=== PATIENT | male | born 1990 | race Caucasian/White ===

== ENCOUNTER 2021-11-10 15:24 | Emergency (ER) | payer OTHER, SELFPAY ==
[2021-11-10 16:36] VITALS: BP 119/77; PULSE 98; RESP 14; TEMP 37.1; O2SAT 99; BMI 25.8
--- NOTE | 2021-11-10 16:48 | ED_ITS ---
HPI - General Adult General: Chief complaint: General Medical Stated complaint: sharp left abdominal pain Time Seen by Provider: 11/10/21 16:45 History of Present Illness: 31-year-old presents with left flank pain. Patient reports that started earlier today. He reports he was concerned it might be a kidney stone. He reports that the pain is constant and mild. Gets worse with movement. He denies any dysuria, hematuria, fever, chills, nausea or vomiting. Patient recalls no injury. He does work at a [employer] and does a lot of lifting and physical activity. Associated symptoms: Deny chest pain, dyspnea, headache(s), nausea, rash, palpit ations or vomiting Review of Systems Const: Denies: fever(s) or chills Card: Denies: chest pain or palpitations Resp: Denies: dyspnea or productive cough GI: Denies: abdominal pain, nausea or vomiting : Reports: flank pain; Denies: difficulty urinating, dysuria or urinary frequency Musc: Reports: back pain; Denies: neck pain, extremity pain or extremity swelling Skin/Breast: Denies: rash Neuro: Denies: headache(s) or numbness in extremities Psych: Denies: anxiety or depression PFSH ED PFSH: Social History Smoking and tobacco status: never smoked Alcohol intake: never Physical Exam Const: COMMON NORMALS: no acute distress, average body habitus and patient oriented x3 HENMT: COMMON NORMALS: normocephalic and atraumatic HEAD & SCALP: normocephalic and atraumatic Chest: COMMONS NORMALS: normal inspection of the chest and normal palpation of entire chest wall Resp: COMMON NORMALS: normal respiratory effort, No retractions, No use of accessory muscles and clear to auscultation bilaterally AUSCULTATION: clear to auscultation bilaterally Cardio: COMMON NORMALS: regular rate and regular rhythm RATE: regular rate RHYTHM: regular rhythm GI: COMMON NORMALS: Normal to inspection, nondistended, normoactive bowel sounds present and Soft to palpation PALPATION: Yes Soft to palpation : BLADDER/KIDNEY EXAM: Yes CVA tenderness on the left Back/Pelvis: GENERAL BACK: Yes CVA tenderness Extremity: COMMON NORMALS: normal to inspection, full ROM and capillary refill normal Neuro: COMMON NORMALS: patient oriented x3, CN's II-XII intact bilaterally, moves all extremities and no focal motor deficits Course Vital Signs: Vital signs: Vital Signs Temperature 98.7 F 11/10/21 16:36 Pulse Rate 98 11/10/21 16:36 Respiratory Rate 14 11/10/21 16:36 Blood Pressure 119/77 11/10/21 16:36 Pulse Oximetry 99 11/10/21 16:36 MDM - General Adult Medical Decision Making Patient's symptoms are completely rib producible with movement and resistance. Patient's with a negative urinalysis for any blood. Is very unlikely that is a kidney stone. Patient stable and discharged home. I discussed with him [id number] medications such as topical lidocaine with menthol, diclofenac. He should follow-up with a primary care provider if symptoms or not improving over the next week. Lab Data Laboratory Results Urine Color Yellow (Yellow) 11/10/21 18:10 Urine Appearance Clear (CLEAR) 11/10/21 18:10 Urine pH 6.5 (5-7) 11/10/21 18:10 Ur Specific [place] 1.010 (1.005-1.030) 11/10/21 18:10 Urine Protein Neg (Negative) 11/10/21 18:10 Urine Glucose (UA) 4+ (Normal) H 11/10/21 18:10 Urine Ketones 1+ (Negative) H 11/10/21 18:10 Urine Blood Neg (Negative) 11/10/21 18:10 Urine Nitrate Negative (Negative) 11/10/21 18:10 Urine Bilirubin Neg (Negative) 11/10/21 18:10 Urine Urobilinogen Norm mg/dL (Negative) 11/10/21 18:10 Ur Leukocyte Esterase Negative (Negative) 11/10/21 18:10 Discharge Plan Discharge Patient Disposition: Home Clinical Impression: Strain of muscle and tendon of back wall of thorax, initial encounter Condition: Stable Prescriptions: No Action Novolin R Flexpen 100 unit/mL (3 mL) insulin pen 15 unit SUBCUT TID 0RF methylprednisolone [Medrol (Eric)] 4 mg tablets,dose pack See Rx Instructions PO PER PKG DIR Qty: 21 0RF Rx Instructions: PO PER PKG DIR cephalexin 500 mg capsule 500 mg PO Q12H 10 Days Qty: 20 0RF Discharge Orders: Discharge ED (Routine); Ordered 11/10/21 Ordered By: Mikel De Discharge Diet: Usual diet Discharge Activity: Increase activity as tolerated Patient Instructions: Thoracic Back Strain (ED), Core Strengthening Exercises (ED), Opioid Safety Activity Restrictions/Additional Instructions: 4% topical lidocaine with menthol, cream gel or patch use as directed on package Voltaren/diclofenac cream use as directed on package Tylenol or ibuprofen as needed for pain Warm moist heat to affected area 3-4 times daily Follow-up with your primary care provider if symptoms or not improved over the next week or if they continue to worsen Coding Level of Care Code ED [employer] Specialist Supervisor for Chg Fwd Exam Comprehensive
[2021-11-10] MEDS: ketorolac 30 mg/mL INJ 15 MG IM (17:59)
[2021-11-10 18:23] LABS: Add Urine Microscopic? NO; Charge for UA Resulting for Rev
[2021-11-10 18:26] LABS: Urine Appearance Clear (CLEAR); Urine Color Yellow (Yellow)
[2021-11-10 18:27] LABS: Bilirubin Urine Neg (Negative); Blood Urine Neg (Negative); Glucose Urine UA 4+ (Normal); Ketones Urine 1+ (Negative); Leukocyte Esterase Urine Negative (Negative); Nitrate Urine Negative (Negative); Protein Urine Neg (Negative); Urobilinogen Urine Norm (Negative); pH Urine 6.5 (5-7)
== END 2021-11-10 18:54 | disposition home or self-care (01) ==
PROVIDERS: Emergency Provider Student in an Organized Health Care Education/Training Program
DX: S29.012A Strain of muscle and tendon of back wall of thorax, initial encounter (principal); X58.XXXA Exposure to other specified factors, initial encounter
CPT/HCPCS: 81003; 96372; 99284; J1885

== ENCOUNTER → 2023-05-23 12:04 | Outpatient (BNVA) | payer OTHER, SELFPAY | PROVIDERS: PCP Nurse Practitioner Family; Referring Provider Nurse Practitioner Family; Visit Provider Internal Medicine | DX: E11.9 Type 2 diabetes mellitus without complications (principal) | CPT/HCPCS: 36415; 80053; 80061; 82044; 83036 ==

== ENCOUNTER → 2023-09-05 11:15 | Outpatient (BNVA) | payer OTHER, SELFPAY | PROVIDERS: PCP Nurse Practitioner Family; Visit Provider Podiatrist Foot & Ankle Surgery | DX: E11.69 Type 2 diabetes mellitus with other specified complication; B35.3 Tinea pedis; R60.9 Edema, unspecified; Z79.4 Long term (current) use of insulin; L03.90 Cellulitis, unspecified; L97.519 Non-pressure chronic ulcer of other part of right foot with unspecified severity | CPT/HCPCS: 36415; 73630; 80053; 85025; 85651; 86140 ==

== ENCOUNTER → 2023-09-16 13:32 | Outpatient (BNVA) | payer OTHER, SELFPAY | PROVIDERS: PCP Nurse Practitioner Family; Visit Provider Internal Medicine | DX: E78.2 Mixed hyperlipidemia (principal) | CPT/HCPCS: 36415; 80053; 80061; 82044; 83036 ==

== ENCOUNTER → 2023-10-17 08:21 | Outpatient (BNVA) | payer OTHER, SELFPAY | PROVIDERS: PCP Nurse Practitioner Family; Visit Provider Podiatrist Foot & Ankle Surgery | DX: L03.90 Cellulitis, unspecified; R60.9 Edema, unspecified; B35.3 Tinea pedis; E10.69 Type 1 diabetes mellitus with other specified complication | CPT/HCPCS: 73630 ==

== ENCOUNTER 2023-11-18 07:54 | Outpatient (CLI) | payer OTHER, SELFPAY ==
--- NOTE | 2023-11-18 08:00 | MR_ITS ---
WS: [id number] EXAMINATION: MR foot RT wo con* [id number] ORDER DATE: 11/18/2023 8:00 AM COMPARISON: None. HISTORY: Cellulitis CONTRAST: None. TECHNIQUE: Sagittal T1, sagittal STIR, coronal PD, coronal T2, axial T1, axial T2, and axial PD imagi ng with fat saturation technique. FINDINGS:Pes planus. Soft tissue edema with skin thickening involving the forefoot. No evidence of dr ainable abscess or fluid collection. Findings likely due to cellulitis. Normal bone marrow signal in the first through fifth metatarsals. Normal cuneiforms. Normal navicular. Normal cuboid. Partially vi sualized talar neck appears normal. Hindfoot is not included on this study. Small amount of edema jd ng the plantar forefoot. No visualized fractures. No evidence of osteomyelitis. MR/MR foot RT wo con* [id number] IMPRESSION: 1. Soft tissue edema involving the dorsal forefoot subcutaneous soft tissues w ith slight edema involving the plantar forefoot compatible with cellulitis with skin thickening. Edema extends into the intertarsal soft tissues. No evidence of drainable abscess or fluid collection. 2. No evidence of osteomyelitis. 3. Normal bone marrow signal in the metatarsals and tarsal bones. 4. No other suspicious findings.
== END 2023-11-18 07:55 | disposition home or self-care (01) ==
LOC: RAD 07:54
PROVIDERS: PCP Nurse Practitioner Family; Visit Provider Podiatrist Foot & Ankle Surgery
DX: L03.90 Cellulitis, unspecified (principal)
CPT/HCPCS: 73718

== ENCOUNTER 2024-04-19 12:00 | Emergency (ER) | payer OTHER, SELFPAY ==
[2024-04-19 12:57] VITALS: BP 145/83; PULSE 100; RESP 16; TEMP 36.8; O2SAT 98; BMI 27.3
[2024-04-19 13:47] LABS: Basophils % 0.3 %; Eosinophils # 0.1 10^3/uL (0.0-0.8); Eosinophils % 1.9 %; Hematocrit 42.5 % (37-53); Lymphocytes # 1.6 10^3/uL (0.8-4.8); Lymphocytes % 22.6 %; Mean Corpuscular HGB Conc 32.5 g/dL (30-55); Mean Corpuscular Hemoglobin 28.3 pg (27-33); Mean Corpuscular Volume 87.1 fl (82-101); Mean Platelet Volume 11.3 fL (7.4-10.4); Monocytes # 0.5 10^3/uL (0.2-0.9); Monocytes % 6.7 %; Neutrophils # 4.92 10^3/uL (1.8-7.7); Neutrophils % 68.2 %; Nucleated Red Blood Cells % 0 %; Platelet Count 302 10^3/cmm (157-399); Red Blood Count 4.88 10^6/uL (3.85-5.65); Red Cell Distribution Width 12.5 % (12.1-15.1); White Blood Count 7.21 10^3/uL (3.29-11.43)
[2024-04-19 14:05] LABS: Alanine Aminotransferase 13 U/L (0-41); Albumin Level 4.3 g/dL (3.5-5.2); Alkaline Phosphatase 86 U/L (40-130); Anion Gap 17.5 (5-19); Aspartate Amino Transferase 16 U/L (0-40); Blood Urea Nitrogen 28 mg/dL (6-20); Carbon Dioxide 24 mmol/L (22-29); Chloride 102 mmol/L (98-107); Globulin 3.3 g/dL (1.3-4.6); Glomerular Filtration Rate 85.5 mL/min (90-130); Glucose 209 mg/dL (65-115); Osmolality Calculated 300 mOsm/kg (285-295); Potassium 4.5 mmol/L (3.5-5.1); Sodium 139 mmol/L (136-145); Total Bilirubin 0.2 mg/dL (0.15-1.2); Total Protein 7.6 g/dL (6.6-8.7)
--- NOTE | 2024-04-19 16:02 | W.ED.EAR ---
Documented by User: ISAIAH Shankar 04/19/24 16:30 HPI - Ear Problem General: Chief complaint: Ear Stated complaint: sent from urgent care/ ear problem Time Seen by Provider: 04/19/24 15:41 Source: patient and family Mode of arrival: ambulatory Limitations: no limitations History of Present Illness: Patient is a 34-year-old male who presents to ED today after he was sent by Dr. Gonzalez for concerns of a right sided mastoiditis. Patient reportedly had a right tympanic membrane perforation approximately a month ago. Since then he has developed pain along his TMJ and jaw. Feels like his jaw feels numb. Previous provider noted that right mastoid was tender to palpation with overlying erythema. Concern was for mastoiditis. Patient states he is having difficulty opening his jaw. He has not noticed any drainage from the ear. No fevers. Vital signs are stable upon arrival. MD Complaint: other (Previous provider concern for mastoiditis) Location: right ear Severity: moderate Exacerbating factors: chewing Discharge from ear: no Associated symptoms: Reports ear or mastoid pain; Denies fever(s), headache(s), neck pain or tinnitus Treatment prior to arrival: none Related Data Previous Rx's Medication Instructions Recorded glucagon 1 mg solution for 1 mg SUBCUT Q20M PRN severe 10/01/23 injection (Glucagon Emergency Kit) hypoglycemia #1 ea atorvastatin 40 mg tablet 40 mg PO DAILY #30 tabs 03/16/24 clotrimazole-betamethasone 1 1 applic topical BID #15 grams 04/13/24 %-0.05 % topical cream insulin aspart U-100 100 unit/mL See Rx Instructions .Route 04/15/24 (3 mL) subcutaneous pen .COMPLEX #90 mL insulin glargine 100 unit/mL (3 See Rx Instructions .Route 04/15/24 mL) subcutaneous pen (Basaglar .COMPLEX #45 mL KwikPen U-100 Insulin) amoxicillin 500 mg-potassium 1 tab PO BID #20 tabs 04/19/24 clavulanate 125 mg tablet (Augmentin) Allergies Allergy/AdvReac Type Severity Reaction Status Date / Time insulin glargine AdvReac B.S. Verified 04/19/24 13:02 [From Lantus U-100 Insulin] remains high Review of Systems Const: Denies: fever(s), chills, body aches, fatigue or malaise ENMT: Reports: ear or mastoid pain; Denies: hoarseness, mouth pain, swelling of lips/tongue, oral sores, dental pain, change in hearing, tinnitus, disequilibrium, nasal discharge, nasal congestion or sinus pain Card: Denies: chest pain Resp: Denies: dyspnea GI: Denies: nausea or vomiting Musc: Denies: neck pain Neuro: Denies: headache(s) PFSH ED PFSH: Medical History Diabetes type 1, uncontrolled Social History Smoking and tobacco/nicotine status: never used tobacco/nicotine Alcohol intake: never Substance/Drug Use: never Physical Exam Const: COMMON NORMALS: no acute distress, average body habitus, patient oriented x3, no limitations, healthy appearing, alert and well nourished GENERAL APPEARANCE: cooperative ORIENTATION/CONSCIOUSNESS: Yes awake, Yes oriented to person, Yes oriented to place and Yes oriented to time HENMT: COMMON NORMALS: normocephalic, atraumatic, hearing grossly normal bilaterally and external ears normal HEAD & SCALP: normal to inspection, normocephalic and atraumatic FACE & SINUS: normal facial exam and other (pain along R TMJ/jaw with opening; feels like jaw is numb) EXTERNAL EAR: Yes external ears normal, Yes mastoid abnormal (mild tenderness; no edema/erythema noted) and Yes no periauricular adenopathy EXTERNAL AUDITORY CANAL: Abnormal EAC present EAC laterality: right Details: cerumen impaction MOUTH: Normal oral and palatal mucosa present and lip normal TEETH & GINGIVA: Yes caries and Yes poor dentition THROAT: posterior oropharynx normal and tonsils normal Eye: GENERAL EYE: appearance normal, both eyes and all related structures Neck/C-Spine: COMMON NORMALS: full ROM, no lymphadenopathy, no meningeal signs, no JVD and No carotid bruits GENERAL: Yes normal visual inspection Cardio: COMMON NORMALS: no JVD Extremity: GENERAL: Yes normal exam except as noted Neuro: LOI COMA SCALE: document GCS findings [place] coma scale eye opening: Spontaneous Loi coma scale verbal response: Orientated [place] coma scale motor response: Obey commands [place] coma scale total score: 15 COMMON NORMALS: patient oriented x3 and CN's II-XII intact bilaterally SENSORIUM/ORIENTATION: Yes alert, Yes oriented to person, Yes oriented to place and Yes oriented to time MENINGEAL SIGNS: Yes no meningeal signs Skin: COMMON NORMALS: no rashes or lesions noted GENERAL SKIN EXAM: no rashes or lesions noted Course Vital Signs: Vital signs: Vital Signs Temperature 98.3 F 04/19/24 12:57 Pulse Rate 100 04/19/24 12:57 Respiratory Rate 16 04/19/24 12:57 Blood Pressure 145/83 04/19/24 12:57 Pulse Oximetry 98 04/19/24 12:57 Oxygen Delivery Me thod Room Air 04/19/24 12:57 MDM - Ear Lab Data 04/19/24 13:30 04/19/24 13:30 Radiology Impressions Temporal Bone CT 04/19/24 16:21 IMPRESSION: Opacification of the right mastoid air cells and right middle ear compatible with otomastoiditis. Recommend clinical correlation and follow-up imaging as clinically warranted Laboratory Results WBC 7.21 10^3/uL (3.29-11.43) 04/19/24 13:30 RBC 4.88 10^6/uL (3.85-5.65) 04/19/24 13:30 Hgb 13.80 g/dL (11.27-16.99) 04/19/24 13:30 Hct 42.5 % (37-53) 04/19/24 13:30 MCV 87.1 fl (82-101) 04/19/24 13:30 MCH 28.3 pg (27-33) 04/19/24 13:30 MCHC 32.5 g/dL (30-55) 04/19/24 13:30 RDW 12.5 % (12.1-15.1) 04/19/24 13:30 Plt Count 302 10^3/cmm (157-399) 04/19/24 13:30 MPV 11.3 fL (7.4-10.4) H 04/19/24 13:30 Neut % (Auto) 68.2 % 04/19/24 13:30 Lymph % (Auto) 22.6 % 04/19/24 13:30 [place] % (Auto) 6.7 % 04/19/24 13:30 Eos % (Auto) 1.9 % 04/19/24 13:30 Baso % (Auto) 0.3 % 04/19/24 13:30 Neut # (Auto) 4.92 10^3/uL (1.8-7.7) 04/19/24 13:30 Lymph # (Auto) 1.6 10^3/uL (0.8-4.8) 04/19/24 13:30 [place] # (Auto) 0.5 10^3/uL (0.2-0.9) 04/19/24 13:30 Eos # (Auto) 0.1 10^3/uL (0.0-0.8) 04/19/24 13:30 Baso # (Auto) 0.0 10^3/uL (0.0-0.1) 04/19/24 13:30 Nucleated RBC % (auto) 0 % 04/19/24 13:30 Nucleated RBCs # 0.0 /100WBC 04/19/24 13:30 Sodium 139 mmol/L (136-145) 04/19/24 13:30 Potassium 4.5 mmol/L (3.5-5.1) 04/19/24 13:30 Chloride 102 mmol/L (98-107) 04/19/24 13:30 Carbon Dioxide 24 mmol/L (22-29) 04/19/24 13:30 Anion Gap 17.5 (5-19) 04/19/24 13:30 BUN 28 mg/dL (6-20) H 04/19/24 13:30 Creatinine 1.0 mg/dL (0.7-1.2) 04/19/24 13:30 GFR Calculation 85.5 mL/min (90-130) L 04/19/24 13:30 Glucose 209 mg/dL (65-115) H 04/19/24 13:30 Calculated Osmolality 300 mOsm/kg (285-295) H 04/19/24 13:30 Calcium 9.0 mg/dL (8.5-10.5) 04/19/24 13:30 Total Bilirubin 0.2 mg/dL (0.15-1.2) 04/19/24 13:30 AST 16 U/L (0-40) 04/19/24 13:30 ALT 13 U/L (0-41) 04/19/24 13:30 Alkaline Phosphatase 86 U/L (40-130) 04/19/24 13:30 C-Reactive Protein 9.0 mg/L (0.0-4.9) H 04/19/24 13:30 Total Protein 7.6 g/dL (6.6-8.7) 04/19/24 13:30 Albumin 4.3 g/dL (3.5-5.2) 04/19/24 13:30 Globulin 3.3 g/dL (1.3-4.6) 04/19/24 13:30 Discharge Plan Discharge Patient Disposition: Home Clinical Impression: Otitis media Condition: Stable Prescriptions: New amoxicillin-pot clavulanate [Augmentin] 500-125 mg tablet 1 tab PO BID Qty: 20 0RF No Action Glucagon Emergency Kit (human) 1 mg recon soln 1 mg SUBCUT Q20M PRN (Reason: severe hypoglycemia) Qty: 1 0RF Rx Instructions: until target blood sugar attained atorvastatin 40 mg tablet 40 mg PO DAILY Qty: 30 3RF Rx Instructions: Take in the evenings before bed clotrimazole-betamethasone 1-0.05 % cream 1 applic topical BID Qty: 15 2RF insulin aspart U-100 100 unit/mL (3 mL) insulin pen See Rx Instructions .ROUTE .COMPLEX Qty: 90 1RF Dose Instruction: inject 34 units SUBCUTANEOUSLY THREE TIMES DAILY FOR 90 DAYS Rx Instructions: inject 34 units SUBCUTANEOUSLY THREE TIMES DAILY FOR 90 DAYS insulin glargine [Basaglar KwikPen U-100 Insulin] 100 unit/mL (3 mL) insulin pen See Rx Instructions .ROUTE .COMPLEX Qty: 45 1RF Dose Instruction: inject 50 units SUBCUTANEOUSLY EVERY MORNING FOR THREE MONTHS Rx Instructions: inject 50 units SUBCUTANEOUSLY EVERY MORNING FOR THREE MONTHS Discharge Orders: Discharge ED (Routine); Ordered 04/19/24 Ordered By: Andreina Gonzales Referrals: Kami Ann NP [Primary Care Provider] - Swapnil Leiva MD [Physician] - 4-7 days Discharge Diet: Advance as tolerated Discharge Activity: Resume usual activity Patient Instructions: Otitis Media - Adult Coding Level of Care Code ED Ems Helicopter Pilot for Chg Fwd Documented by User: Andreina Gonzales MD 04/19/24 17:37 HPI - Ear Problem General: Chief complaint: Ear Stated complaint: sent from urgent care/ ear problem Time Seen by Provider: 04/19/24 15:41 Related Data Previous Rx's Medication Instructions Recorded glucagon 1 mg solution for 1 mg SUBCUT Q20M PRN severe 10/01/23 injection (Glucagon Emergency Kit) hypoglycemia #1 ea atorvastatin 40 mg tablet 40 mg PO DAILY #30 tabs 03/16/24 clotrimazole-betamethasone 1 1 applic topical BID #15 grams 04/13/24 %-0.05 % topical cream insulin aspart U-100 100 unit/mL See Rx Instructions .Route 04/15/24 (3 mL) subcutaneous pen .COMPLEX #90 mL insulin glargine 100 unit/mL (3 See Rx Instructions .Route 04/15/24 mL) subcutaneous pen (Basaglar .COMPLEX #45 mL KwikPen U-100 Insulin) amoxicillin 500 mg-potassium 1 tab PO BID #20 tabs 04/19/24 clavulanate 125 mg tablet (Augmentin) Allergies Allergy/AdvReac Type Severity Reaction Status Date / Time insulin glargine AdvReac B.S. Verified 04/19/24 13:02 [From Lantus U-100 Insulin] remains high [facility] ED PFSH: Medical History Diabetes type 1, uncontrolled Social History Smoking and tobacco/nicotine status: never used tobacco/nicotine Alcohol intake: never Substance/Drug Use: never Physical Exam Neuro: LOI COMA SCALE: document GCS findings [place] coma scale total score: 15 Course Vital Signs: Vital signs: Vital Signs Temperature 98.3 F 04/19/24 12:57 Pulse Rate 100 04/19/24 12:57 Respiratory Rate 16 04/19/24 12:57 Blood Pressure 145/83 04/19/24 12:57 Pulse Oximetry 98 04/19/24 12:57 Oxygen Delivery Me thod Room Air 04/19/24 12:57 MDM - Ear Medical Decision Making Patient presents with right ear pain I examined him as well he has no tenderness over his mastoid on my exam CT showed a otomastoiditis is likely an inner ear infection. I spoke to Dr. Bentley over the CT with him as well will start on Augmentin we will get follow-up with Dr. Leal informed patient if he has any worsening pain or fevers he is to return he understands agrees to plan. Medical Records I reviewed the patient's medical records. Lab Data I reviewed the patient's lab results. 04/19/24 13:30 04/19/24 13:30 Radiology Impressions Temporal Bone CT 04/19/24 16:21 IMPRESSION: Opacification of the right mastoid air cells and right middle ear compatible with otomastoiditis. Recommend clinical correlation and follow-up imaging as clinically warranted Laboratory Results WBC 7.21 10^3/uL (3.29-11.43) 04/19/24 13:30 RBC 4.88 10^6/uL (3.85-5.65) 04/19/24 13:30 Hgb 13.80 g/dL (11.27-16.99) 04/19/24 13:30 Hct 42.5 % (37-53) 04/19/24 13:30 MCV 87.1 fl (82-101) 04/19/24 13:30 MCH 28.3 pg (27-33) 04/19/24 13:30 MCHC 32.5 g/dL (30-55) 04/19/24 13:30 RDW 12.5 % (12.1-15.1) 04/19/24 13:30 Plt Count 302 10^3/cmm (157-399) 04/19/24 13:30 MPV 11.3 fL (7.4-10.4) H 04/19/24 13:30 Neut % (Auto) 68.2 % 04/19/24 13:30 Lymph % (Auto) 22.6 % 04/19/24 13:30 [place] % (Auto) 6.7 % 04/19/24 13:30 Eos % (Auto) 1.9 % 04/19/24 13:30 Baso % (Auto) 0.3 % 04/19/24 13:30 Neut # (Auto) 4.92 10^3/uL (1.8-7.7) 04/19/24 13:30 Lymph # (Auto) 1.6 10^3/uL (0.8-4.8) 04/19/24 13:30 [place] # (Auto) 0.5 10^3/uL (0.2-0.9) 04/19/24 13:30 Eos # (Auto) 0.1 10^3/uL (0.0-0.8) 04/19/24 13:30 Baso # (Auto) 0.0 10^3/uL (0.0-0.1) 04/19/24 13:30 Nucleated RBC % (auto) 0 % 04/19/24 13:30 Nucleated RBCs # 0.0 /100WBC 04/19/24 13:30 Sodium 139 mmol/L (136-145) 04/19/24 13:30 Potassium 4.5 mmol/L (3.5-5.1) 04/19/24 13:30 Chloride 102 mmol/L (98-107) 04/19/24 13:30 Carbon Dioxide 24 mmol/L (22-29) 04/19/24 13:30 Anion Gap 17.5 (5-19) 04/19/24 13:30 BUN 28 mg/dL (6-20) H 04/19/24 13:30 Creatinine 1.0 mg/dL (0.7-1.2) 04/19/24 13:30 GFR Calculation 85.5 mL/min (90-130) L 04/19/24 13:30 Glucose 209 mg/dL (65-115) H 04/19/24 13:30 Calculated Osmolality 300 mOsm/kg (285-295) H 04/19/24 13:30 Calcium 9.0 mg/dL (8.5-10.5) 04/19/24 13:30 Total Bilirubin 0.2 mg/dL (0.15-1.2) 04/19/24 13:30 AST 16 U/L (0-40) 04/19/24 13:30 ALT 13 U/L (0-41) 04/19/24 13:30 Alkaline Phosphatase 86 U/L (40-130) 04/19/24 13:30 C-Reactive Protein 9.0 mg/L (0.0-4.9) H 04/19/24 13:30 Total Protein 7.6 g/dL (6.6-8.7) 04/19/24 13:30 Albumin 4.3 g/dL (3.5-5.2) 04/19/24 13:30 Globulin 3.3 g/dL (1.3-4.6) 04/19/24 13:30 All radiology interpretation(s) finalized by discharge Discharge Plan Discharge Patient Disposition: Home Clinical Impression: Otitis media Condition: Stable Prescriptions: New amoxicillin-pot clavulanate [Augmentin] 500-125 mg tablet 1 tab PO BID Qty: 20 0RF No Action Glucagon Emergency Kit (human) 1 mg recon soln 1 mg SUBCUT Q20M PRN (Reason: severe hypoglycemia) Qty: 1 0RF Rx Instructions: until target blood sugar attained atorvastatin 40 mg tablet 40 mg PO DAILY Qty: 30 3RF Rx Instructions: Take in the evenings before bed clotrimazole-betamethasone 1-0.05 % cream 1 applic topical BID Qty: 15 2RF insulin aspart U-100 100 unit/mL (3 mL) insulin pen See Rx Instructions .ROUTE .COMPLEX Qty: 90 1RF Dose Instruction: inject 34 units SUBCUTANEOUSLY THREE TIMES DAILY FOR 90 DAYS Rx Instructions: inject 34 units SUBCUTANEOUSLY THREE TIMES DAILY FOR 90 DAYS insulin glargine [Basaglar KwikPen U-100 Insulin] 100 unit/mL (3 mL) insulin pen See Rx Instructions .ROUTE .COMPLEX Qty: 45 1RF Dose Instruction: inject 50 units SUBCUTANEOUSLY EVERY MORNING FOR THREE MONTHS Rx Instructions: inject 50 units SUBCUTANEOUSLY EVERY MORNING FOR THREE MONTHS Discharge Orders: Discharge ED (Routine); Ordered 04/19/24 Ordered By: Andreina Gonzales Referrals: Kami Ann NP [Primary Care Provider] - Swapnil Leiva MD [Physician] - 4-7 days Discharge Diet: Advance as tolerated Discharge Activity: Resume usual activity Patient Instructions: Otitis Media - Adult Coding Level of Care Code ED Ems Helicopter Pilot for Verenice Matthews
--- NOTE | 2024-04-19 16:21 | CTR_ITS ---
PROCEDURE INFORMATION: Exam: CT Temporal Bones With Contrast. Exam date and time: 04/19/2024 5:36 PM Age: 34 years old Clinical indication: Other: Mastioditis RT; Additional info: Told R mastoiditis? TECHNIQUE: Imaging protocol: Computed tomography of the temporal bones with contrast. Radiation optimization: All CT scans at this facility use at least one of these dose optimization techniques: automated exposure control; mA and/or kV adjustment per patient size (includes targeted exams where dose is matched to clinical indication); or iterative reconstruction. Contrast material: OMNI 350; Contrast volume: 100 ml; Contrast route: INTRAVENOUS (IV); COMPARISON: No relevant prior studies available. RADIATION DOSE METRICS: Total DLP (mGy-cm): 549.18 FINDINGS: Right inner ear: Inner ear structures including the cochlea and semicircular canals are unremarkable. Right ossicles and middle ear: The middle ear ossicles are intact. There is complete opacification of the right middle ear. Right external auditory canal: Soft tissue thickening along the jara of the external auditory canal. Recommend correlation with direct visualization. Right facial nerve canal: Normal. Right jugular foramen: No jugular dehiscence. Right carotid canal: No aberrant carotid canal. Right mastoid air cells: Nearly complete opacification of the right mastoid air cells. Intact bony septations. Left inner ear: Inner ear structures including the cochlea and semicircular canals are unremarkable. Left ossicles and middle ear: The middle ear ossicles are intact. Left external auditory canal: Normal. Left facial nerve canal: Normal. Left jugular foramen: No jugular dehiscence. Left carotid canal: No aberrant carotid canal. Left mastoid air cells: Well aerated mastoid air cells with intact bony septations. Soft tissues: Visualized soft tissues are unremarkable. CT/CT temporal bones w con [id number] IMPRESSION: Opacification of the right mastoid air cells and right middle ear compatible with otomastoiditis. Recommend clinical correlation and follow-up imaging as clinically warranted
[2024-04-19 17:49] VITALS: BP 165/101; PULSE 78; O2SAT 98
--- NOTE | 2024-04-20 08:16 | DCPLANNER ---
Sent referral to Dr. Abbie pickard
== END 2024-04-19 17:50 | disposition home or self-care (01) ==
PROVIDERS: Emergency Provider Emergency Medicine; PCP Nurse Practitioner Family
DX: H66.91 Otitis media, unspecified, right ear (principal); E10.9 Type 1 diabetes mellitus without complications; Z79.4 Long term (current) use of insulin
CPT/HCPCS: 36415; 70481; 80053; 85025; 86140; 99284; Q9967

== ENCOUNTER 2024-05-19 09:22 | Outpatient (CLI) | payer OTHER, SELFPAY ==
--- NOTE | 2024-05-19 09:30 | CT_ITS ---
WS: [id number] CT TEMPORAL BONES TECHNIQUE: Noncontrast CT of the temporal bones with coronal and sagittal reformatted images. CLINICAL INFORMATION: OTORRHEA,R EAR COMPARISON: 04/19/2024 DLP: 345.[address] scans at [facility] use at least one of these dose optimization techniques: automated e xposure control; mA and/or kV adjustment per patient size (includes targeted exams where dose is matc hed to clinical indication); or iterative reconstruction. FINDINGS: RIGHT: Complete opacification of the RIGHT mastoid air cells and RIGHT middle ear. Opacification of mastoid air cells appears progressed. A few small areas of aeration within the RIGHT middle ear.Opacification of Prussak space. Tegmen tympani appears intact. Retraction of the tympanic membrane. Ossicles appea r intact. Otherwise normal inner ear structures. LEFT: Mastoid air cells are well aerated. Normal external auditory canal. Ossicles are normal in appearance . Middle ear is well aerated. Normal tegmen tympani. Semicircular canals and cochlea are normal in ap pearance. Prussak's space is normal. Normal inner ear structures. Normal vestibular aqueduct. Facial nerve recess is normal. CT/CT temporal bone wo con* [id number] IMPRESSION: 1. Complete opacification RIGHT mastoid air cells and RIGHT middle ear most co mpatible with otomastoiditis similar to previous. Mastoid air cell opacificatio n has slightly progressed today. A few small locules of aeration in the RIGHT m iddle ear which is still nearly completely opacified. 2. LEFT mastoid air cells and middle ear are well aerated. 3. Paranasal sinuses are well aerated. Mild mucosal thickening in the RIGHT ma xillary sinus. 4. Normal posterior nasopharynx.
== END 2024-05-19 09:23 | disposition home or self-care (01) ==
LOC: RAD 09:22
PROVIDERS: PCP Nurse Practitioner Family; Visit Provider Specialist
DX: H74.8X1 Other specified disorders of right middle ear and mastoid (principal); H92.11 Otorrhea, right ear
CPT/HCPCS: 70480

== ENCOUNTER 2025-03-02 07:51 | Day surgery (SDC) | payer OTHER, SELFPAY ==
[2025-03-02] VITALS (9 sets, daily range): BP systolic 103–135; BP diastolic 57–96; PULSE 72–79; RESP 14–18; TEMP 36.3–36.5; O2SAT 93–99; BMI 27.3
--- NOTE | 2025-03-02 09:16 | ANES.PREANE2 ---
Pre-Anesthetic Assessment Height/Weight: Height 1.73 m Weight 81.647 kg Temp Pulse Resp BP Pulse Ox O2 Del Method 97.5 F L 73 14 133/89 98 Room Air 03/02/25 08:47 03/02/25 08:47 03/02/25 08:47 03/02/25 08:47 03/02/25 08:47 03/02/25 08:47 Operation Date: 03/02/25 09:20 Proposed Procedures p RIGHT Long Finger Trigger Finger Release(Right) - Vahe Garcia MD Familial anesthetic complications: None Was Beta Chito taken within 24 hours: N/A Was Clonidine taken within 24 hours: N/A Last intake: Intake Last Liquid Date 03/01/25 Last Liquid Time 22:00 Last Solid Date 03/01/25 Last Solid Time 22:00 Social No alcohol and No tobacco Exam alert, oriented x 3, clear to auscultation bilaterally and regular rate & rhythm Airway Mallampati: Class III Dentition: full Metabolic Diabetes Mellitus Anesthetic Plan ASA status: 3 Anesthesia: MAC Risk of > 500 ml blood loss (7ml/kg in children): No Medications/Allergies Home Medications ?Medication ?Instructions ?Recorded ?Confirmed ?Last Taken ?Type glucagon 1 mg solution for 1 mg SUBCUT Q20M PRN severe 10/01/23 03/01/25 Unknown Rx injection (Glucagon Emergency Kit) hypoglycemia #1 ea blood-glucose sensor (FreeStyle #2 ea 11/16/24 01/27/25 Unknown Rx Idania 3 Plus Sensor device) blood-glucose,suction plate 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 Verified 03/01/25 11:10 Lantus U-100 Insulin) remains high [facility] Anesthesia Medical History Diabetes type 1, uncontrolled Social History Smoking and tobacco/nicotine status: never used tobacco/nicotine Alcohol intake: never Substance/Drug Use: never
[2025-03-02] MEDS: insulin regular-human 100 units/1 mL 10 UNIT IVP (09:22)
--- NOTE | 2025-03-02 09:32 | W.PM.OPSUD ---
Surgery/Procedure H&P Update DATE OF PROCEDURE: March 02, 2025 DATE H&P PERFORMED: 01/27/25 H&P UPDATE INFORMATION: I have reviewed H&P completed within last 30 days, I have examined patient prior to procedure and No changes to prior documentation PREOP DIAGNOSIS: Right middle finger trigger finger PLANNED PROCEDURE: Operation Date: 03/02/25 09:20 Proposed Procedures p RIGHT Long Finger Trigger Finger Release(Right) - Vahe Garcia MD
[2025-03-02] MEDS: ceFAZolin 2,000 mg SDV 2000 MG IVP (09:39)
[2025-03-02] MEDS: BUPivacaine 0.5% INJ 10 mL INJECTION (09:57)
--- NOTE | 2025-03-02 11:30 | ANE.PACU2 ---
Inpatient post-anesthesia follow up: Airway intact: Yes Vital signs: Temperature 97.4 F Pulse Rate 76 Respiratory Rate 17 Blood Pressure 135/96 Pulse Oximetry 99 Oxygen Delivery Me thod Room Air Oxygen Flow Rate 10 Fraction of Inspir ed Oxygen Hydration adequate: Yes Nausea and vomiting: No Pain level: 1 Mental status: Baseline
--- NOTE | 2025-03-04 08:20 | PM.OP ---
Operative Report Date of procedure: March 02, 2025 Surgeon: Vahe Garcia MD Procedure: Preoperative diagnosis: Trigger finger long finger of the right hand Postoperative diagnosis: Same Procedure: Right long finger trigger release Surgeon: Vahe Zaidi MD Anesthesia: General EBL: None Indications: Cesario is a 35-year-old white male presented to orthopedic clinics with pain and locking of his middle fingers right hand. This been going on for some time now. Conservative measures did not help with this. He had to manually straighten his finger most of the time if it flexed down too far. He has painful nodule palpable in the flexor tendon of the long finger at the A1 maddi. Therefore at this time offered a trigger finger release. All risk benefits treatment terms were discussed with him and he is agreeable to this at this time. Procedure: After obtaining consent patient taken the op room placed the op table supine position general anesthetic administered. Once K[place] was achieved patient is right arm was prepped and draped usual fashion. After surgical timeout hand and wrist were exsanguinated with the Esmarch and Esmarch was used for a tourniquet. Longitudinal incision made through the distal flexion crease of the palm at the level of the A1 maddi in line with the long finger. Sharp dissection taken down to subcutaneous tissue. Blunt sharp dissection was done by tenotomy scissors down to the tendon sheath. A1 maddi identified and divided in half with #15 blade. Finger was put through range of motion found to demonstrate no further triggering of the tendon at this time. Skin was closed with 3-0 Prolene horizontal mattress sutures. Wounds are cleaned and dried dressed Xeroform gauze, sterile gauze dressing, Kerlix wrap and Isaac wrap for compression. Patient was waken transferred to cover room in stable condition
== END 2025-03-02 11:30 | disposition home or self-care (01) ==
PROVIDERS: PCP Nurse Practitioner Family; Visit Provider Orthopaedic Surgery
PROC: (CPT 26055; principal; 2025-03-02 09:20)
DX: M65.331 Trigger finger, right middle finger (principal); E10.9 Type 1 diabetes mellitus without complications; Z79.4 Long term (current) use of insulin
CPT/HCPCS: 26055; 36416; 82962; J0690; J1100; J1815; J1885; J2250; J2405; J2704; J3010; J3490; J7030; J9999